=== PATIENT | female | born 1985 | race Caucasian/White ===

== ENCOUNTER 2018-10-02 12:36 | Inpatient (IN) | payer OTHER ==
[~2018-10-02] VITALS: Ht 162.6 cm; Wt 86.7 kg
[2018-10-02 12:56] VITALS: BMI 32.8
[2018-10-02 12:57] VITALS: BP 102/67; PULSE 66; RESP 18
[2018-10-02] MEDS ORDERED: PNV11TAB PO (13:05)
[2018-10-02] MEDS ORDERED: METHYLERGONOVINE 0.2 MG INJ IM PRN ×2 (14:30→22:30)
[2018-10-02] MEDS ORDERED: OXYTOCIN 30 UNITS/LR 500 ML IV SCH ×4 (14:30→22:17)
[2018-10-02] MEDS ORDERED: IBUPROFEN 600 MG TAB PO PRN (14:30)
[2018-10-02] MEDS ORDERED: OXYTOCIN 30 UNITS/LR 500 ML IV PRN ×2 (14:30→22:30)
[2018-10-02] MEDS ORDERED: MISOPROSTOL 200 MCG TAB PR PRN ×2 (14:30→22:30)
[2018-10-02] MEDS ORDERED: LIDOCAINE 1% (MPF) 30 ML INJ INJ PRN (14:30)
[2018-10-02] MEDS ORDERED: BUTORPHANOL 2 MG INJ IV PRN (14:30)
[2018-10-02] MEDS ORDERED: OXYCODONE/ASPIRIN (4.88/325) TAB PO PRN (14:30)
[2018-10-02] MEDS ORDERED: CARBOPROST 250 MCG INJ IM PRN ×2 (14:30→22:30)
[2018-10-02] MEDS: LACTATED RINGER'S 1,000 ML IV SCH ×3 (14:34→19:30)
[2018-10-02 14:55] VITALS: Ht 162.6 cm; Wt 86.7 kg
--- NOTE | 2018-10-02 16:58 | HP ---
Date/Time of Note Date/Time of Note DATE: 10/02/18 TIME: 16:24 OB - History Hx of Present Free Text/Dictation [id number] here st 40w4d for IOL for postdate. initial VE 3/50/-2 intact membrane, last VE at clinic was 2/50/-3 0n 09/30/18 EFM irreg [facility] CAT I tracing her course was initiated around 8weeks had unevenful course GBS status neg admitted for IOL using pitocin,after ARM. add hx of abnormal pap with HPV pos 2013 EFW 4170gm 80% Chief Complaint: IOL Estimated Due Date: Sep 28, 2018 : 6 Para: 3 Spontaneous : 1 Therapeutic : 1 Care: Good Care Ultrasounds: Normal mid trimester US Obstetrical Complications: None Medical Complications: None Past Family/Social History * Past Medical, Surgical, Family and Obstetric Histories reviewed from chart. Blood Type: O+ Rubella: immune RPR/VDRL: Negative GBS Status: Negative HBsAG: Negative OB Admission Exam Vital Signs Vital Signs Vital Signs Date Temp Pulse Resp B/P (MAP) Pulse Ox O2 O2 Flow FiO2 Time Delivery Rate 10/02/18 98.5 66 18 102/67 12:57 (79) Physical Exam HEENT: WNL Heart: Rhythm Normal Lungs: Clear, Equal Abdomen: WNL Extremities: Normal Reflexes: Normal Cervical Dilatation: 3cm Effacement: 50% Station: -2 Membranes: Intact Amniotic Fluid: Unevaluable Heart Rate: 140's Accelerations: Accelerations Present Decelerations: No Decelerations Varibility: Moderate Contractions on Admission: >10 Minutes Apart Intensity: Mild Last 72 hours Lab Results CBC & BMP 10/02/18 13:54 OB Assessment/Plan Reason for admission: induction of labor Other Assessment: IUP 40w4d Plan: Induction Induction Method: per Pitocin Protocol Other plan: ARM IRIS TAMEZ MD Oct 02, 2018 16:52
[2018-10-02] MEDS: LACTATED RINGER'S 1,000 ML IV PRN ×2 (18:13→18:53)
[2018-10-02] MEDS ORDERED: FENTAnyl 2MCG/ML-ROPIV 0.2% 100 ML ONE (18:35)
--- NOTE | 2018-10-02 18:48 | PREAC ---
Date/Time of Note Date/Time of Note DATE: 10/02/18 TIME: 18:47 Anesthesia Eval and Record Evaluation Time Pre-Procedure Interview DATE: 10/02/18 TIME: 18:47 Age 33 Sex female NPO: 8 hrs Preoperative diagnosis Labor Pain Planned procedure Labor Epidural Past Medical History Past Medical History: Includes : : (5), Para: (3), Gestational age: (40), Other (Macrosomia) Surgery & Anesthesia Issues No known issue Meds Anticoagulation: No Beta Felix within 24 hr: No Reason Beta Felix not given: Pt. not on B-Felix Reported Medications [id number] ( 19) 1 Each Tablet, 1 TAB PO DAILY, TAB 10/02/18 Current Medications Lactated Ringer's 1,000 ml @ 125 mls/hr Q8H IV Last administered on 10/02/18at 14:34; Admin Dose 125 MLS/HR; Start 10/02/18 at 14:24 Butorphanol Tartrate (Stadol) 2 mg Q2H PRN IV .PAIN SCALE 6-10; Start 10/02/18 at 14:30 Lidocaine (Xylocaine 1% (Mpf)) 30 ml ONCE PRN INJ .EPISIOTOMY; Start 10/02/18 at 14:30 Oxytocin/Lactated Ringer's 500 ml @ 500 mls/hr ONCE POST IV ; Start 10/02/18 at 14:30 Oxytocin/Lactated Ringer's 500 ml @ 125 mls/hr POST IV ; Start 10/02/18 at 14:30 Ibuprofen (Motrin) 600 mg ONCE PRN PO .PAIN 1-5; Start 10/02/18 at 14:30 Oxycodone/Aspirin (Percodan) 2 tab ONCE PRN PO .PAIN 6-10; Start 10/02/18 at 14:30 Lactated Ringer's 1,000 ml @ 2,000 mls/hr Q30M PRN IV .ANESTHESIA Last administered on 10/02/18at 18:13; Admin Dose 2,000 MLS/HR; Start 10/02/18 at 14:24 Oxytocin/Lactated Ringer's 500 ml @ 0 mls/hr ONCE PRN IV .VAGINAL BLEEDING; Start 10/02/18 at 14:30 Methylergonovine Maleate (Methergine) 0.2 mg ONCE PRN IM .VAGINAL BLEEDING; Start 10/02/18 at 14:30 Carboprost Tromethamine (Hemabate) 250 mcg ONCE PRN IM .VAGINAL BLEEDING; Start 10/02/18 at 14:30 Misoprostol (Cytotec) 1,000 mcg ONCE PRN [place] .VAGINAL BLEEDING; Start 10/02/18 at 14:30 Oxytocin/Lactated Ringer's 500 ml @ 0 mls/hr Q0M IV Last administered on 10/02/18at 16:47; Admin Dose 1 MLS/HR; Start 10/02/18 at 16:30 Meds reviewed: Yes Allergies Coded Allergies: No Known Drug Allergy (Verified Allergy, Mild, 02/17/12) Allergies Reviewed: Yes Labs/Studies Labs Reviewed: Reviewed by anesthesiologist Result Diagram: 10/02/18 1354 Laboratory Tests 10/02/18 13:54 Blood Bank Test 10/02/18 13:54 Antibody Screen NEGATIVE Blood Type O POSITIVE Rh Immune Globulin Candidate NO test: Positive Studies: ECG (n/a), CXR (n/a) Pre-procedure Exam Last vitals Vital Signs Date Temp Pulse Resp B/P (MAP) Pulse Ox O2 O2 Flow FiO2 Time Delivery Rate 10/02/18 98.5 66 18 102/67 12:57 (79) Airway: Adequate mouth opening, Adequate thyromental dist Mallampati: Mallampati II Teeth: Normal Lung: Normal Heart: Normal ASA Physical Status ASA physical status: 2 Emergency: None Planned Anesthetic Neuraxial: Epidural Planned Pain Management Epidural Pre-operative Attestations Prior to commencing anesthesia and surgery, the patient was re-evaluated, there was verification of: *The patient's identity *The results of appropriate recent lab work and preoperative vital signs *The above evaluation not changing prior to induction *Anesthetic plan, risk benefits, alternative and complications discussed with patient/family; questions answered; patient/family understands, accepts and wishes to proceed. INDRA MARTINEZ MD Oct 02, 2018 18:48
[2018-10-02] MEDS ORDERED: NALOXONE (0.4 MG/ML) INJ IV PRN (19:00)
[2018-10-02] MEDS ORDERED: FENTAnyl 2MCG/ML-ROPIV 0.2% 100 ML BAG EPI SCH (19:00)
--- NOTE | 2018-10-02 19:13 | PAC ---
Date/Time of Note Date/Time of Note DATE: 10/02/18 TIME: 19:13 Post-Anesthesia Notes Post-Anesthesia Note Last documented vital signs Vital Signs Date Temp Pulse Resp B/P (MAP) Pulse Ox O2 O2 Flow FiO2 Time Delivery Rate 10/02/18 98.5 66 18 102/67 100 room air 18:57 (79) Activity: WNL Respiratory function: WNL Cardiovascular function: WNL Mental status: Baseline Pain reasonably controlled: Yes Hydration appropriate: Yes Nausea/Vomiting absent: Yes INDRA MARTINEZ MD Oct 02, 2018 19:13
[2018-10-02] MEDS: LACTATED RINGER'S 1,000 ML IV* SCH (22:17)
--- NOTE | 2018-10-02 22:17 | LDN ---
Date/Time of Note Date/Time of Note DATE: 10/02/18 TIME: 22:15 Delivery Summary Weeks of Gestation Postdates Placenta Delivered: Spontaneously Meconium: Light Episiotomy: No Anesthesia type: Epidural Estimated blood loss: 200 Sponge & Needle done & correct: Yes All needle counts correct: Yes Any foreign bodies felt in the: No Delivery Information Sex Sex: female Apgars 1 Minute: 8 5 Minute: 9 Suctioning Nose & mouth suctioned at eduarda: Yes Delee suction performed: No Umbilical Cord Umbilical cord with: 3 Vessels Cord presentations: nuchal cord (X1 around the neck manually reduced) Cord Blood was obtained: Yes Mother & Baby Disposition Disposition Baby's weight 9 pounds 1 ounces/ 4105 g Patient received Methergine IM x1 dose Mom & Baby to Maternity; Good: Yes Baby to NICU: No Copies To: CC: BRITT WADE MD ; YURY BURTON MD Oct 02, 2018 22:17
[2018-10-02] MEDS ORDERED: DIBUCAINE 1% 30 GM OINT TOP PRN (22:30)
[2018-10-02] MEDS ORDERED: MAGNESIUM HYDROXIDE 30ML CUP PO PRN (22:30)
[2018-10-02] MEDS ORDERED: LANOLIN HPA 1 PKT TOP PRN (22:30)
[2018-10-02] MEDS ORDERED: WITCH HAZEL/GLYCERIN PAD PR PRN (22:30)
[2018-10-02] MEDS ORDERED: SENNA/DOCUSATE NA (8.6MG/50MG) TAB PO PRN (22:30)
[2018-10-02] MEDS ORDERED: ACETAMINOPHEN 325 MG TAB PO PRN ×2 (22:30)
[2018-10-02] MEDS ORDERED: BENZOCAINE 20% 56 ML SPRAY TOP PRN (22:30)
[2018-10-02] MEDS ORDERED: ONDANSETRON 4 MG INJ IV PRN (22:30)
[2018-10-02 23:30] VITALS: BP 112/62; PULSE 66; RESP 18
[2018-10-03] VITALS (8 sets, daily range): BP systolic 91–116; BP diastolic 52–71; PULSE 67–87; RESP 18
[2018-10-03] MEDS: IBUPROFEN 600 MG TAB PO PRN ×3 (00:39→19:48)
[2018-10-03] MEDS: LACTATED RINGER'S 1,000 ML IV* SCH ×3 (06:17→22:17)
--- NOTE | 2018-10-03 08:30 | QN ---
Documentation Comment PPD #1 Pt is doing OK. but as baby was still hungry she has tried the bottle but the baby did not want it. Baby is under the bili-lites already. Pt delivered at 2100 last night, had some small blood clots at 0100 and was unable to void at 0300 and needed in and out catheterization. Has yet to void again. T= 98.3 BP 99/54 Fundus at the umbilicus and over on the right. No clots expelled with fundal massage. Lochia moderate. Ext 2-3+ edema. WBC 12.2 Hgb 12.3 Plts 189K P: Continue care. Recc: dripping formula onto the nipple so baby can get formula while . The RN will call if pt unable to void again. Pt can try showering if unable. RONAN BUNDY MD Oct 03, 2018 08:30
[2018-10-04 04:14] VITALS: BP 88/53; PULSE 79; RESP 18
[2018-10-04] MEDS: IBUPROFEN 600 MG TAB PO PRN ×2 (05:02→18:15)
[2018-10-04 08:00] VITALS: BP 107/69; PULSE 69; RESP 16
--- NOTE | 2018-10-04 13:25 | DS ---
Date/Time of Note Date/Time of Note DATE: 10/04/18 TIME: 13:25 Obstetrical Discharge Record Final Diagnosis Final Diagnosis: Term delivered Vaginal Delivery Obstetrical Delivery: Spontaneous Complications Augmentation: Yes Induction: Yes Rupture of Membranes: No Condition on Discharge Physical Assessment Voiding: Yes Bowel Movement: Yes Breast: Soft, non-tender, Filling Fundus: Firm Abdomen and Incision: soft, not tender Calf Tenderness: No Patient Condition: Good BRITT WADE MD Oct 04, 2018 13:25
[2018-10-04 15:25] VITALS: BP 97/57; PULSE 61; RESP 16
--- NOTE | 2018-10-05 23:09 | DELSUM ---
Delivery Summary A-C Datetime Report Generated by CPN: 10/05/2018 23:09 DELIVERY PERSONNEL Field Cane Scaler: Pennington, Carmen MATERNAL INFORMATION Delivery Anesthesia: Epidural Medications in Delivery: 30 UNITS PITOCIN Delivery QBL (ml): 200 Placenta Cultured: No Maternal Complications: None LABOR SUMMARY EDC: 09/28/2018 00:00 No. Babies in Womb: 1 Attempted: No Labor Anesthesia: Epidural LABOR INFORMATION Reason for Induction: Postterm Onset of Labor: 10/02/2018 13:00 Complete Dilatation: 10/02/2018 20:30 Cervical Ripening Agents: Cytotec @ Oxytocin: Induction Group B Beta Strep: Negative Steroids Given: None Reason Steroids Not Administered: Not Applicable MEMBRANES Membranes Rupture Method: Artificial Rupture of Membranes: 10/02/2018 16:18 Length of Rupture (hr): 4.98 Amniotic Fluid Color: Clear Amniotic Fluid Amount: Small Amniotic Fluid Odor: None STAGES OF LABOR Stage 1 hr: 7 Stage 1 min: 30 Stage 2 hr: 0 Stage 2 min: 47 Stage 3 hr: 0 Stage 3 min: 3 Total Time in Labor hr: 8 Total Time in Labor min: 20 VAGINAL DELIVERY Laceration Extension: N/A Laceration Repair: Not Applicable Initial Vag Sponge Count: 10 Final Vag Sponge Count: 10 Initial Vag Sharps Count: 2 Final Vag Sharps Count: 3 Sponge Count Correct: Yes; Vaginal Sweep Performed Sharps Count Correct: Yes BABY A INFORMATION Infant Delivery Date/Time: 10/02/2018 21:17 Method of Delivery: Vaginal Born in Route : No : N/A Forceps: N/A Vacuum Extraction: N/A Shoulder Dystocia : N/A SHOULDER DYSTOCIA BABY A Delivery Date/Time: 10/02/2018 21:17 PRESENTATION/POSITION BABY A Presentation: Cephalic Cephalic Presentation: Vertex Breech Presentation: N/A PLACENTA INFORMATION BABY A Placenta Delivery Time : 10/02/2018 21:20 Placenta Method of Delivery: Expressed Placenta Status: Delivered SCORES BABY A Heart Rate 1 min: >100 bpm Resp Effort 1 min: Good Cry Reflex Irritability 1 min: Cough/Sneeze/Pulls Away Muscle Tone 1 min: Active Motion Color 1 min: Blue/Pale Resuscitation Effort 1 min: Tactile Stimulation SCORE 1 MIN: 8 Heart Rate 5 min: >100 bpm Resp Effort 5 min: Good Cry Reflex Irritability 5 min: Cough/Sneeze/Pulls Away Muscle Tone 5 min: Active Motion Color 5 min: Body Bel[place], Extremit Blue Resuscitation Effort 5 min: Tactile Stimulation SCORE 5 MIN: 9 INFORMATION BABY A Gestational Age at Delivery: 40.4 Gestational Status: Full Term- 39- 40.6 Weeks Infant Outcome : Liveborn, with signs of life Infant Condition : Stable Infant Sex: Female IDENTIFICATION/MEDS BABY A ID Band Number: [id number] ID Band Location: Right Leg; Left Arm Sensor Applied: Yes Sensor Number: [id number] Sensor Location : Cord Clamp Vitamin K Given : Not Given Erythromycin Given: Not Given WEIGHT/LENGTH BABY A Infant Birthweight (gm): 4105 Infant Weight (lb): 9 Weight (oz): 1 Infant Length (in): 20.00 Length (cm): 50.80 CORD INFORMATION BABY A No. Cord Vessels: 3 Nuchal Cord : Around Neck x1, Loose Cord Blood Taken: Yes Suction: Mouth; Nose ASSESSMENT BABY A Infant Complications: Meconium Infant Complications- Other: TERMINAL MEC Physical Findings at Delivery: Within Normal Limits Infant Respirations: Appears Normal Hydrator Operator/ALS Called : No Care By: GABRIEL Transferred To: Remains with Mother
== END 2018-10-04 18:00 | disposition home or self-care (01) | DRG 807 ==
LOC: OBT 12:36 → L-D 12:36 → OBT 13:00 → PP1 23:28
PROVIDERS: ADMIT Specialist; ATTEND Specialist
PROC: 10E0XZZ Delivery of Products of Conception, External Approach (ICD-10-PCS; principal; 2018-10-02)
PROC: 3E033VJ Introduction of Other Hormone into Peripheral Vein, Percutaneous Approach (ICD-10-PCS; 2018-10-02)
DX: O48.0 Post-term pregnancy (principal); Z37.0 Single live birth; Z3A.40 40 weeks gestation of pregnancy; O69.81X0 Labor and delivery complicated by cord around neck, without compression, not applicable or unspecified
CPT/HCPCS: 62322; 76815; 85025; 85610; 85730; 86592; 86850; 86900; 86901; 87340; G0463; J2210; J2590; J3010; J7120